=== PATIENT | male | born 1995 | race Caucasian/White ===

== ENCOUNTER 2017-04-30 15:11 | Emergency (ER) | payer BC ==
[~2017-04-30] VITALS: Ht 182.9 cm; Wt 82.7 kg
[2017-04-30 15:15] VITALS: BP 125/56; TEMP 97.9
[2017-04-30] MEDS ORDERED: VENTOLIN0.09 MG IH (15:18)
[2017-04-30 17:13] VITALS: PULSE 67
== END 2017-04-30 17:14 | disposition home or self-care (01) ==
LOC: COL.ER 15:11
DX: S06.0X0A Concussion without loss of consciousness, initial encounter (principal); S90.31XD Contusion of right foot, subsequent encounter; S80.11XA Contusion of right lower leg, initial encounter; S00.01XA Abrasion of scalp, initial encounter; S20.311A Abrasion of right front wall of thorax, initial encounter; S50.811A Abrasion of right forearm, initial encounter; S50.812A Abrasion of left forearm, initial encounter; J45.909 Unspecified asthma, uncomplicated; V19.9XXA Pedal cyclist (driver) (passenger) injured in unspecified traffic accident, initial encounter; Y93.55 Activity, bike riding; Y92.410 Unspecified street and highway as the place of occurrence of the external cause
CPT/HCPCS: J3010